=== PATIENT | female | born 1985 | race Two or more races ===

== ENCOUNTER 2023-03-25 18:06 | Emergency (ER) | payer MEDICAID, OTHER ==
[~2023-03-25] VITALS: Ht 152.4 cm; Wt 81.8 kg
[2023-03-25 18:35] VITALS: BP 156/70; PULSE 97; RESP 18; O2SAT 99
[2023-03-25 19:44] LABS: Basophils # (auto) 0 10 ^3/uL (0-0.2); Basophils % (auto) 0.4 % (0.0-2.0); Nucleated Red Blood Cells % 0.1 %
[2023-03-25 19:45] LABS: Eosinophils # (auto) 0.2 10 ^3/uL (0-0.8); Hematocrit 37.1 % (36.0-46.0); Lymphocytes # (auto) 2.7 10 ^3/uL (0.4-5.4); Lymphocytes % (auto) 25.7 % (10.0-50.0); Mean Corpuscular Hemoglobin 26.1 pg (28.0-32.0); Mean Corpuscular Hgb Conc. 32.5 g/dL (32.0-36.0); Mean Corpuscular Volume 80.3 fL (80.0-100.0); Monocytes # (auto) 0.7 10 ^3/uL (0-1.3); Monocytes % (auto) 6.3 % (0.0-12.0); Neutrophils % (auto) 65.6 % (37.0-80.0); Red Blood Cells 4.61 10^6/uL (4.0-5.20); Red Cell Distribution Width 18.1 % (11.8-14.3); White Blood Cell 10.7 10^3/uL (4.4-10.8)
[2023-03-25 19:58] LABS: INR 0.98 (0.9-1.15); Partial Thromboplastin Time 30.1 SEC (24.5-34.5); Prothrombin Time 10.3 sec (9.3-11.8)
== END 2023-03-25 21:05 | disposition home or self-care (01) ==
LOC: EDBD 18:06 → ER 18:06
DX: O26.893 Other specified pregnancy related conditions, third trimester (principal); R04.0 Epistaxis; Z3A.30 30 weeks gestation of pregnancy
CPT/HCPCS: 36415; 85025; 85610; 85730